=== PATIENT | female | born 1960 | race Caucasian/White ===

== ENCOUNTER 2017-08-04 08:07 | Emergency (ER) | payer BC ==
[2017-08-04] MEDS ORDERED: Nitroglycerin 0.4 MG Tab.SL SL ONE (08:21)
[2017-08-04 09:00] LABS: CHLORIDE,CL 105 mmol/L (98-107); SODIUM,NA 138 mmol/L (136-145)
[2017-08-04] MEDS ORDERED: Morphine 4 MG/ML Syringe IVPUSH ONE (09:09)
[2017-08-04] MEDS ORDERED: Ondansetron 4 MG/2 ML SDV IVPUSH ONE (09:09)
--- NOTE | 2017-08-04 09:20 | EDM.PDOC ---
ED HPI GENERAL MEDICAL PROBLEM - General Chief Complaint: Chest Pain Stated Complaint: shoulder, chest pain Time Seen by Provider: 08/04/17 08:20 Source of Information: Reports: Patient, Old Records History Limitations: Reports: Language Barrier - History of Present Illness INITIAL COMMENTS - FREE TEXT/NARRATIVE: Patient brought over from [facility] [place] after she presented there for right shoulder and chest pain. Denies having similar symptoms in past. Says that she woke this morning with this pain and that it was not present last night. Pain is worse with breathing. Pain is worse when moving arms/shoulders. She denies any significant past medical history other than high cholesterol, anxiety, and migraines/headaches. Patient is from [facility] and was difficult to understand when getting chief complaint/history/family history. Does not report a significant cardiac history. Never smoker. No recent injuries/illnesses. No medication changes. Denies accompanying symptoms such as fever/cough/SOB/GI changes/sweating. Pain started in right shoulder, then began to radiate across anterior chest. No reported changes with eating/drinking. Patient has not taken any medication for the pain. Eventually stated that she has had previous problems with right shoulder pain. Told nurse she has "large" who takes up most of bed and she needs to sleep on her side, often the right shoulder. Also says she has nightly numbness/ tingling in hands that is much better during daytime when she is up and about. Chest Pain Score (Numeric/FACES): 10 - Related Data Allergies Allergy/AdvReac Type Severity Reaction Status Date / Time No Known Allergies Allergy Verified 08/04/17 08:29 Home Meds: Home Meds Ibuprofen [Advil] 1 - 2 tab PO Q6H PRN 06/11/16 [History] Multivits,Ca,Minerals/Iron/FA [Women's Daily Formula Caplet] 1 each PO DAILY [History] Fenofibrate,Micronized [Fenofibrate] 134 mg PO DAILY 08/04/17 [History] Past Medical History HEENT History: Reports: Impaired Vision Cardiovascular History: Reports: High Cholesterol CERTIFIED PARALEGAL History: Reports: Other (See Below) Other OB/BYN History: POSTMENOPAUSAL Neurological History: Reports: Migraines, Other (See Below) Other Neuro History: MUSCLE TENSION HEADACHES. Psychiatric History: Reports: Anxiety - Infectious Disease History Infectious Disease History: Reports: Chicken Pox, Measles, Mumps, Shingles Social & Family History - Family History Family Medical History: Unobtainable (language barrier, no report of significant cardiac history) - Tobacco Use Smoking Status *Q: Never Smoker - Caffeine Use Caffeine Use: Reports: None - Recreational Drug Use Recreational Drug Use: No ED ROS GENERAL - Review of Systems Review Of Systems: See Below Constitutional: Reports: No Symptoms. Denies: Fever, Chills HEENT: Reports: Glasses. Denies: Throat Pain, Throat Swelling, Vertigo, Vision Change Respiratory: Reports: Pleuritic Chest Pain. Denies: Shortness of Breath, Wheezing, Cough, Sputum, Hemoptysis Cardiovascular: Reports: Chest Pain. Denies: Dyspnea on Exertion, Edema, Lightheadedness, Orthopnea, Palpitations, Syncope GI/Abdominal: Reports: No Symptoms : Reports: No Symptoms Musculoskeletal: Reports: Shoulder Pain. Denies: Neck Pain, Arm Pain, Back Pain , Hand Pain, Leg Pain, Foot Pain, Joint Pain, Muscle Pain, Muscle Stiffness Skin: Reports: No Symptoms Neurological: Reports: Paresthesia (Has chronic issues at night, no acute changes/worsening. ) Psychiatric: Denies: Confusion, Depression, Hallucinations, Homicidal Ideation, Mood Lability, Suicidal Ideation ED EXAM, GENERAL - Physical Exam Exam: See Below Exam Limited By: Other (patient very anxious, moaning) General Appearance: Alert, WD/WN, Anxious, Moderate Distress Eye Exam: Bilateral Eye: EOMI, PERRL Ears: Normal External Exam Nose: Normal Inspection Throat/Mouth: Normal Inspection, Normal Lips, Normal Voice, No Airway Compromise Neck: Normal Inspection, Supple, Non-Tender, Full Range of Motion. No: Lymphadenopathy (L), Lymphadenopathy (R) Respiratory/Chest: No Respiratory Distress, Lungs Clear, Normal Breath Sounds, No Accessory Muscle Use, Other (anterior chest tender with palpation, more so in right pectoral area. Reproduces complaint. ) Cardiovascular: Normal Peripheral Pulses, Regular Rate, Rhythm, No Edema, No JVD , No Murmur Peripheral Pulses: 2+: Radial (L), Radial (R), Dorsalis Pedis (L), Dorsalis Pedis (R) GI/Abdominal: Normal Bowel Sounds, Soft, Non-Tender, No Distention (Female) Exam: Deferred Rectal (Female) Exam: Deferred Back Exam: Other (Tenderness in area of left upper trapezius. ). No: CVA Tenderness (L), CVA Tenderness (R), Vertebral Tenderness Neurological: Alert, Oriented, Normal Cognition, Normal Reflexes, No Motor/ Sensory Deficits Psychiatric: Anxious Skin Exam: Warm, Dry, Intact, Normal Color EKG INTERPRETATION EKG Date: 08/04/17 Time: 08:17 Rhythm: NSR Rate (Beats/Min): 78 [place]: Normal P-Wave: Present QRS: Normal ST-T: Normal QT: Normal Comparison: NA - No Prior EKG Course - Vital Signs Last Recorded V/S: Last Vital Signs Temp Pulse 79 08/04/17 10:19 Resp 20 08/04/17 10:19 BP 115/65 08/04/17 10:19 Pulse Ox 94 L 08/04/17 10:19 - Orders/Labs/Meds Orders: Active Orders 24 hr Category Date Time Status EKG Documentation Completion [RC] ASDIRECTED Care 08/04/17 08:21 Ordered Chest 2V [CR] Stat Exams 08/04/17 08:43 Ordered Chest w Cont [CT] Stat Exams 08/04/17 09:10 Ordered UA W/MICROSCOPIC [URIN] Stat Lab 08/04/17 08:20 Uncollected Ketorolac [Toradol] Med 08/04/17 10:52 Once 30 mg IVPUSH ONETIME ONE Sodium Chloride 0.9% [Saline Flush] Med 08/04/17 08:20 Ordered 10 ml FLUSH ASDIRECTED PRN methylPREDNISolone Sod Succ [Solu-MEDROL] Med 08/04/17 10:52 Once 125 mg IVPUSH ONETIME ONE Saline Lock Insert [OM.PC] Stat Oth 08/04/17 08:20 Ordered Medication Orders Sodium Chloride (Saline Flush) 10 ml FLUSH ASDIRECTED PRN PRN Reason: Keep Vein Open Last Admin: 08/04/17 09:21 Dose: 10 ml Labs: Laboratory Tests 08/04/17 08/04/17 08/04/17 Range/Units 08:25 08:25 08:25 WBC 13.7 H (4.0-10.2) K/uL RBC 4.62 (3.77-5.09) M/uL Hgb 13.9 (11.7-15.5) g/dL Hct 41.8 (34.0-46.0) % MCV 90.5 (84.0-98.0) fL MCH 30.1 (28.2-33.3) pg MCHC 33.3 (31.7-36.0) g/dL RDW 13.0 (11.2-14.1) % Plt Count 287 (150-350) K/uL Neut % (Auto) 80.5 H (45.0-80.0) % Lymph % (Auto) 12.7 (10.0-50.0) % [place] % (Auto) 4.8 (2.0-14.0) % Eos % (Auto) 1.8 (0.0-5.0) % Baso % (Auto) 0.2 (0.0-2.0) % Neut # (Auto) 11.00 H (1.40-7.00) K/uL Lymph # (Auto) 1.73 (0.50-3.50) K/uL [place] # (Auto) 0.65 (0.00-1.00) K/uL Eos # (Auto) 0.24 (0.00-0.50) K/uL Baso # (Auto) 0.03 (0.00-0.20) K/uL PT 10.4 (9.8-11.7) SEC INR 1.0 D-Dimer, Quantitative (0-400) ng/mL Sodium 138 (136-145) mmol/L Potassium 3.8 (3.5-5.1) mmol/L Chloride 105 (98-107) mmol/L Carbon Dioxide 21.7 (21.0-32.0) mmol/L BUN 21 H (7-18) mg/dL Creatinine 0.57 (0.51-1.17) mg/dL Est Cr Clr Drug Dosing 76.33 mL/min Estimated GFR (MDRD) > 60 mL/min Glucose 123 H (74-106) mg/dL Calcium 9.7 (8.5-10.1) mg/dL Total Bilirubin 0.5 (0.2-1.0) mg/dL AST 30 (15-37) U/L ALT 35 (12-78) U/L Alkaline Phosphatase 50 (46-116) IU/L Creatine Kinase 149 (26-308) U/L Creatine Kinase Index 0.9 (0.0-2.5) % CK-MB (CK-2) 1.40 (0.00-3.60) ng/mL Troponin I 0.000 (0.000-0.056) ng/mL Total Protein 7.8 (6.4-8.2) g/dL Albumin 4.1 (3.4-5.0) g/dL 08/04/17 Range/Units 08:25 WBC (4.0-10.2) K/uL RBC (3.77-5.09) M/uL Hgb (11.7-15.5) g/dL Hct (34.0-46.0) % MCV (84.0-98.0) fL MCH (28.2-33.3) pg MCHC (31.7-36.0) g/dL RDW (11.2-14.1) % Plt Count (150-350) K/uL Neut % (Auto) (45.0-80.0) % Lymph % (Auto) (10.0-50.0) % [place] % (Auto) (2.0-14.0) % Eos % (Auto) (0.0-5.0) % Baso % (Auto) (0.0-2.0) % Neut # (Auto) (1.40-7.00) K/uL Lymph # (Auto) (0.50-3.50) K/uL [place] # (Auto) (0.00-1.00) K/uL Eos # (Auto) (0.00-0.50) K/uL Baso # (Auto) (0.00-0.20) K/uL PT (9.8-11.7) SEC INR D-Dimer, Quantitative < 100 (0-400) ng/mL Sodium (136-145) mmol/L Potassium (3.5-5.1) mmol/L Chloride (98-107) mmol/L Carbon Dioxide (21.0-32.0) mmol/L BUN (7-18) mg/dL Creatinine (0.51-1.17) mg/dL Est Cr Clr Drug Dosing mL/min Estimated GFR (MDRD) mL/min Glucose (74-106) mg/dL Calcium (8.5-10.1) mg/dL Total Bilirubin (0.2-1.0) mg/dL AST (15-37) U/L ALT (12-78) U/L Alkaline Phosphatase (46-116) IU/L Creatine Kinase (26-308) U/L Creatine Kinase Index (0.0-2.5) % CK-MB (CK-2) (0.00-3.60) ng/mL Troponin I (0.000-0.056) ng/mL Total Protein (6.4-8.2) g/dL Albumin (3.4-5.0) g/dL Meds: Medications Generic Name Dose Route Start Last Admin Trade Name Freq PRN Reason Stop Dose Admin Sodium Chloride 10 ml 08/04/17 08:20 08/04/17 09:21 Saline Flush FLUSH 10 ml ASDIRECTED PRN Administration Keep Vein Open Discontinued Medications Generic Name Dose Route Start Last Admin Trade Name Freq PRN Reason Stop Dose Admin Iopamidol 100 ml 08/04/17 09:45 08/04/17 10:18 Isovue-300 (61%) IVPUSH 08/04/17 09:46 100 ml ONETIME ONE Administration Morphine Sulfate 4 mg 08/04/17 09:09 08/04/17 09:15 Morphine IVPUSH 08/04/17 09:10 4 mg ONETIME ONE Administration Nitroglycerin 0.4 mg 08/04/17 08:21 08/04/17 08:32 Nitrostat SL 08/04/17 08:22 0.4 mg ONETIME ONE Administration Ondansetron HCl 4 mg 08/04/17 09:09 08/04/17 09:15 Zofran IVPUSH 08/04/17 09:10 4 mg ONETIME ONE Administration - Radiology Interpretation Free Text/Narrative:: Chest xray showed very poor inspiration, difficult to assess. Ultimately read as unremarkable per Radiology. CT Results Date: 08/04/17 CT Results Time: 10:48 (Negative for acute processes) - Re-Assessments/Exams Free Text/Narrative Re-Assessment/Exam: 08/04/17 10:41 Labs overall unremarkable except for WBC at 13,000, including Troponin and DDimer. Patient reported some mild improvement with pain with single NTG SL. EKG showed no acute changes. Patient continued to moan and appeared very anxious, still complaining of pain. Very poor inspiration for chest xray. Mediastinum appeared larger when compared to older film, however large difference in level of inspiration between two studies. Given this, and patient's behavior/continued complaints of severe pain , CT study of chest performed to rule out other possible processes, such as aneurism. MS given prior to study. Patient appeared much more comfortable after study performed. Free Text/Narrative Re-Assessment/Exam: 08/04/17 10:54 CT read as negative for acute changes. At this time, suspect that patient complaint is most likely related to musculo- skeletal etiology. Recommended that she look into sleeping situation and bed size/mattress as well as follow up with [facility] [place]. Appointment was made for tomorrow morning at 11:30. She may benefit from PT referral or require additional studies , such as MRI. Patient agreeable with plan, and stated that pain was still present, but much improved. Toradol and Solumedrol given to help with additional pain relief and improvement of inflammation. Departure - Departure Time of Disposition: 11:15 Disposition: Home, Self-Care 01 Condition: Good Clinical Impression: Anterior chest wall pain, Anxiety Right shoulder pain Qualifiers: Chronicity: unspecified Qualified Code(s): M25.511 - Pain in right shoulder - Discharge Information Instructions: Nonspecific Chest Pain, [id number], Shoulder Pain, Ketorolac injection, Methylprednisolone Solution for Injection Forms: ED Department Discharge Additional Instructions: Follow up tomorrow at 11:30 with Megan at [facility] [place]. Follow up in ER as needed if you have sudden worsening problems. You may need additional studies performed, or referral to PT. Consider getting larger bed and better mattress to help with nightly discomfort. OK to take Tylenol for pain. Do not take Ibuprofen or Naprosyn for 6 hours after you leave ER. - My Orders Last 24 Hours: My Active Orders 08/04/17 08:20 UA W/MICROSCOPIC [URIN] Stat Sodium Chloride 0.9% [Saline Flush] 10 ml FLUSH ASDIRECTED PRN Saline Lock Insert [OM.PC] Stat 08/04/17 08:21 EKG Documentation Completion [RC] ASDIRECTED 08/04/17 08:43 Chest 2V [CR] Stat 08/04/17 09:10 Chest w Cont [CT] Stat 08/04/17 10:52 Ketorolac [Toradol] 30 mg IVPUSH ONETIME ONE methylPREDNISolone Sod Succ [Solu-MEDROL] 125 mg IVPUSH ONETIME ONE - Assessment/Plan Last 24 Hours: My Active Orders 08/04/17 08:20 UA W/MICROSCOPIC [URIN] Stat Sodium Chloride 0.9% [Saline Flush] 10 ml FLUSH ASDIRECTED PRN Saline Lock Insert [OM.PC] Stat 08/04/17 08:21 EKG Documentation Completion [RC] ASDIRECTED 08/04/17 08:43 Chest 2V [CR] Stat 08/04/17 09:10 Chest w Cont [CT] Stat 08/04/17 10:52 Ketorolac [Toradol] 30 mg IVPUSH ONETIME ONE methylPREDNISolone Sod Succ [Solu-MEDROL] 125 mg IVPUSH ONETIME ONE
[2017-08-04] MEDS: Sodium Chloride 0.9% 10 ML Syringe FLUSH PRN ×2 (09:21→10:57)
[2017-08-04] MEDS ORDERED: Iopamidol 612 MG/ML 100 ML Bottle IVPUSH ONE (09:45)
[2017-08-04 10:20] VITALS: BP 115/65
[2017-08-04] MEDS ORDERED: methylPREDNISolone Sodium Succinate 125 MG/2 ML SDV IVPUSH ONE (10:52)
[2017-08-04] MEDS ORDERED: Ketorolac 30 MG/ML SDV IVPUSH ONE (10:52)
== END 2017-08-04 11:18 | disposition home or self-care (01) ==
LOC: LL.ED 08:07
DX: R07.89 Other chest pain (principal); F41.9 Anxiety disorder, unspecified; M25.511 Pain in right shoulder; E78.00 Pure hypercholesterolemia, unspecified; Z79.899 Other long term (current) drug therapy
CPT/HCPCS: 36415; 71020; 71260; 80053; 82550; 82553; 84484; 85025; 85379; 85610; 93005; 96374; 96375; 99285; A9270; J1885; J2270; J2405; J2930; J7050; Q9967

== ENCOUNTER 2019-12-07 16:55 | Emergency (ER) | payer BC, OTHER ==
[2019-12-07 17:02] VITALS: PULSE 63
--- NOTE | 2019-12-07 17:18 | EDM.PDOC ---
ED HPI GENERAL MEDICAL PROBLEM - General Chief Complaint: Eye Problems Stated Complaint: EYE SWELLING Time Seen by Provider: 12/07/19 17:05 Source of Information: Reports: Patient, Old Records ([facility] chart/EMR) History Limitations: Reports: Language Barrier - History of Present Illness INITIAL COMMENTS - FREE TEXT/NARRATIVE: The patient drove herself to the emergency room for evaluation of moderate facial rash and facial swelling, after starting a new Firming Cream from [employer] , which she started yesterday morning. Symptoms started at about 10 PM yesterday evening. She is also using another facial pain, which she has tolerated well in the past with no other change in allergen exposure. She does complain of a burning sensation in her face with some pruritus, however no history of dysphagia or other rashes on her body. The patient also denies any recent fever, cough, wheezing, dyspnea, etc.. No recent history of abdominal pain, heartburn, nausea, diarrhea, melena, gross hematochezia, or any food intolerance, including fatty foods, etc.. She is a somewhat poor historian secondary to her poor [place] and anxiety. Onset: Gradual Onset Date: 12/06/19 Onset Time: 22:00 Duration: Getting Worse Location: Reports: Face Quality: Reports: Burning, Same as Previous Episode Severity: Moderate Improves with: Reports: None Worsens with: Reports: None Context: Reports: Other (As above). Denies: Sick Contact, Trauma Associated Symptoms: Reports: Rash. 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: Other (see below) (None) - Related Data Allergies Allergy/AdvReac Type Severity Reaction Status Date / Time NIGHT TIME FIRMING CREAM Allergy Swelling Uncoded 12/07/19 16:57 Home Meds: Home Meds Ibuprofen [Advil] 1 - 2 tab PO Q6H PRN 06/11/16 [History] Multivit,Calc,Mins/Iron/Folic [Women's Daily Formula Caplet] 1 each PO DAILY [History] Famotidine [Pepcid] 20 mg PO BID #20 tab 12/07/19 [Rx] Dell-3 Fatty Acids [Dell-3] 100 mg PO DAILY 12/07/19 [History] diphenhydrAMINE HCl [Benadryl] 50 mg PO Q4HR PRN #30 capsule 12/07/19 [Rx] predniSONE [Prednisone] 20 mg PO BIDMEALS #20 tablet 12/07/19 [Rx] Past Medical History HEENT History: Reports: Impaired Vision, Otitis Media, Other (See Below). Denies: Allergic Rhinitis Other HEENT History: Patient wears reading glasses. Permanent right-sided TM. Left-sided tinnitus. Cardiovascular History: Reports: High Cholesterol, Other (See Below). Denies: Hypertension Other Cardiovascular History: Dyslipidemia with secondary fatty liver. Gastrointestinal History: Reports: Fatty Liver, GERD, Hiatal Hernia, Other (See Below) Other Gastrointestinal History: GERD with reflux esophagitis and benign gastric polyp removed by EGD on 06/12/16. LUMP MAKER History: Reports: Other (See Below) LMP (Approximate): Other (See Below) Other LUMP MAKER History: POSTMENOPAUSAL Musculoskeletal History: Reports: Arthritis, Back Pain, Chronic, Neck Pain, Chronic, Osteoarthritis, Osteoporosis Neurological History: Reports: Headaches, Chronic, Migraines, Other (See Below) Other Neuro History: MUSCLE TENSION HEADACHES. Psychiatric History: Reports: Anxiety, Depression Endocrine/Metabolic History: Reports: Obesity/BMI 30+, Osteopenia, Osteoporosis - Infectious Disease History Infectious Disease History: Reports: Chicken Pox, Measles, Mumps, Shingles, Other (See Below). 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 - Past Surgical History GI Surgical History: Reports: Colonoscopy, EGD, Other (See Below) Other GI Surgeries/Procedures: EGD and colonoscopy on 06/12/16 and 01/15/12. - Past Imaging History Past Imaging History: Reports: CAT Scan (Negative CTA of the chest on 08/04/17. CT of the brain on 05/24/13), DEXA Scan (01/28/19), Mammogram (Last on 08/13/18), MRI (MRI of the brain and [place] of [place] on 06/07/13.), Ultrasound ( Gallbladder ultrasound on 01/22/12.) Social & Family History - Family History Oncologic: Reports: Other (See Below) Other Oncologic Family History: Father with unknown type of GI cancer. 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 ED EXAM GENERAL W FULL EYE - Physical Exam Exam: See Below Exam Limited By: No Limitations General Appearance: Alert, WD/WN, No Apparent Distress, Anxious (Moderate) Eye Exam: Bilateral Eye: EOMI, Normal Inspection (No nystagmus), PERRL, Other ( No eye involvement from her facial cream) Eyelids: Bilateral: Edema Conjunctiva & Sclera: Bilateral: Normal Appearance Cornea Exam: Bilateral: Normal Appearance Extraocular Movements: Bilateral: Intact Pupils: Normal Accommodation Pupillary Size: Bilateral: 6 mm Pupillary Reaction: Bilateral: Brisk Ears: Normal External Exam, Normal Canal (Moderate cerumen), Hearing Grossly Normal, Other (Permanent inferior anterior right TM perforation by history) Nose: Normal Inspection, Normal Mucosa, No Blood Throat/Mouth: Normal Inspection, Normal Lips, Normal Gums, Normal Oropharynx, Normal Voice, No Airway Compromise, Other (No evidence of uvular swelling). No : Normal Teeth (Complete dentures uppers and lowers), Dysphagia, Inflammation, Perioral Cyanosis Head: Facial Swelling (Diffuse mild to moderate facial erythema, urticaria, and swelling with no significant angioedema) Neck: Normal Inspection, Supple, Non-Tender, Full Range of Motion. No: Lymphadenopathy (L), Lymphadenopathy (R), Thyromegaly Respiratory/Chest: No Respiratory Distress, Lungs Clear, Normal Breath Sounds, No Accessory Muscle Use, Chest Non-Tender. No: Pleural Rub, Retractions Cardiovascular: Normal Peripheral Pulses, Regular Rate, Rhythm, No Edema, No Gallop, No JVD, No Murmur, No Rub. No: Gallop/S3, Gallop/S4, Friction Rub GI/Abdominal: Normal Bowel Sounds, Soft, Non-Tender, No Organomegaly, No Distention, No Abnormal Bruit, No Mass, Other (Obese). No: Guarding (Female) Exam: Deferred Rectal (Female) Exam: Deferred Back Exam: Normal Inspection, Full Range of Motion. No: CVA Tenderness (L), CVA Tenderness (R), Muscle Spasm Extremities: Normal Inspection, Normal Range of Motion, Non-Tender, No Pedal Edema, Normal Capillary Refill. No: Michael's Sign Neurological: Alert, Oriented, CN II-XII Intact, Normal Cognition, Normal Gait, No Motor/Sensory Deficits Psychiatric: Anxious (Moderate), Depressed Mood (Mild) Skin Exam: Rash (Facial rash as above). No: Diaphoretic, Increased Warmth, Wound/Incision Lymphatic: No Adenopathy Course - Vital Signs Last Recorded V/S: Last Vital Signs Temp 36.8 C 12/07/19 17:01 Pulse 63 12/07/19 17:01 Resp 16 12/07/19 17:01 BP 150/70 H 12/07/19 17:37 Pulse Ox 100 12/07/19 17:01 Vital Signs - 24 hr 12/07/19 12/07/19 17:01 17:37 Temperature [ 36.8 C Temporal] Pulse, 63 Peripheral [ Pulse Oximetry] Respiratory 16 Rate Blood Pressure 180/87 H 150/70 H [Left Upper Arm ] O2 Sat by Pulse 100 Oximetry - Orders/Labs/Meds Orders: Active Orders 24 hr Category Date Time Status Obtain Past Medical Record [OM.PC] Routine Oth 12/07/19 17:18 Active Labs: None Meds: Medications Discontinued Medications Generic Name Dose Route Start Last Admin Trade Name Skye PRN Reason Stop Dose Admin Diphenhydramine HCl 50 mg 12/07/19 17:21 12/07/19 17:28 Benadryl IM 12/07/19 17:22 50 mg ONETIME ONE Administration Famotidine 40 mg 12/07/19 17:21 12/07/19 17:28 Pepcid PO 12/07/19 17:22 40 mg ONETIME ONE Administration Methylprednisolone Acetate 80 mg 12/07/19 17:19 12/07/19 17:28 Depo-Medrol IM 12/07/19 17:20 80 mg ONETIME ONE Administration - Radiology Interpretation Free Text/Narrative:: None Departure - Departure Time of Disposition: 17:45 Disposition: Home, Self-Care 01 Condition: Good Clinical Impression: Allergic dermatitis, Elevated blood pressure reading, Mixed anxiety depressive disorder, Dyslipidemia, Peptic reflux disease Osteoarthritis Qualifiers: Osteoarthritis location: multiple joints Osteoarthritis type: primary Qualified Code(s): M15.0 - Primary generalized (osteo)arthritis - Discharge Information *PRESCRIPTION DRUG MONITORING PROGRAM REVIEWED*: Not Applicable *COPY OF PRESCRIPTION DRUG MONITORING REPORT IN PATIENT REDD: Not Applicable Prescriptions: diphenhydrAMINE HCl [Benadryl] 50 mg PO Q4HR PRN #30 capsule PRN Reason: Rash Famotidine [Pepcid] 20 mg PO BID #20 tab predniSONE [Prednisone] 20 mg PO BIDMEALS #20 tablet Instructions: Contact Dermatitis Referrals: Марина Jimenez PA [Primary Care Provider] - Forms: ED Department Discharge Additional Instructions: 1. Followup with your regular provider in 5-7 days as directed. Bring these discharge instructions with you to that visit. 2. Continue need to observe your blood pressures closely through your regular provider 3. Sedation precautions with Benadryl, which was also given to you in the emergency room with neck stenosis of Benadryl as needed in 4 hours 4. Stop all facial cream preparations ISAURO secondary to your allergic reaction 5. Immediately after this visit verify that your cellular telephone's voicemail has been activated and is empty. Also verify that your home telephone 's answering machine is operating properly and has space to receive messages. Note that it is sometimes necessary for us to be able to contact you at a later date to discuss your medical care. 6. Please remember that we are ALWAYS here for you and want to answer any questions you may have. Feel free to call the hospital any time and we call you back ISAURO. Sepsis Event Note - Evaluation Sepsis Screening Result: No Definite Risk - Focused Exam Vital Signs: Vital Signs Temp Pulse Resp BP Pulse Ox 12/07/19 17:37 150/70 H 12/07/19 17:01 36.8 C 63 16 180/87 H 100 Date Exam was Performed: 12/07/19 Time Exam was Performed: 17:59 - Problem List & Annotations (1) Allergic dermatitis SNOMED Code(s): 538647455 Code(s): L23.9 - ALLERGIC CONTACT DERMATITIS, UNSPECIFIED CAUSE Status: Acute Priority: High Current Visit: Yes Onset Date: 12/06/19 Annotation/ Comment:: No evidence of angioedema or indication for IM epinephrine therapy. She will be declared allergic to this facial cream and was advised not using any facial preparations in the future. Follow-up by her regular provider. Sedation precautions given. Note Pepcid was used primarily for H2 jessica treatment. (2) Dyslipidemia SNOMED Code(s): 944579761 Code(s): E78.5 - HYPERLIPIDEMIA, UNSPECIFIED Status: Chronic Priority: Medium Current Visit: Yes Annotation/Comment:: Not currently under therapy. Note history of fatty liver. Weight loss in moderation advisable. Close follow- up by regular provider. (3) Elevated blood pressure reading SNOMED Code(s): 69347159 Code(s): R03.0 - ELEVATED BLOOD-PRESSURE READING, W/O DIAGNOSIS OF HTN Status: Acute Priority: High Current Visit: Yes Onset Date: 12/07/19 Annotation/Comment:: Moderately elevated blood pressure at time of arrival secondary to her anxiety. No previous history of hypertension with improved blood pressure prior to discharge without treatment. Continue to observe closely by her regular provider. (4) Mixed anxiety depressive disorder SNOMED Code(s): 130232992 Code(s): F41.8 - OTHER SPECIFIED ANXIETY DISORDERS Status: Chronic Priority: Medium Current Visit: Yes Annotation/Comment:: Moderate control based on today's exam. Continue to observe closely by her regular provider with consideration of medical therapy. (5) Osteoarthritis SNOMED Code(s): 699171563 Code(s): M19.90 - UNSPECIFIED OSTEOARTHRITIS, UNSPECIFIED SITE Status: Chronic Priority: Medium Current Visit: Yes Annotation/Comment:: Stable by history Qualifiers: Osteoarthritis location: multiple joints Osteoarthritis type: primary Qualified Code(s): M15.0 - Primary generalized (osteo)arthritis (6) Peptic reflux disease SNOMED Code(s): 143442866 Code(s): K21.9 - GASTRO-ESOPHAGEAL REFLUX DISEASE WITHOUT ESOPHAGITIS Status: Chronic Priority: Medium Current Visit: Yes Annotation/Comment:: Stable by history. - Problem List Review Problem List Initiated/Reviewed/Updated: Yes - My Orders Last 24 Hours: My Active Orders 12/07/19 17:18 Obtain Past Medical Record [OM.PC] Routine - Assessment/Plan Last 24 Hours: My Active Orders 12/07/19 17:18 Obtain Past Medical Record [OM.PC] Routine Assessment:: As above Plan: As above. Extensive precautions were given to the patient, who is in agreement with the treatment plan. See Patient Instructions for further treatment and plan.
[2019-12-07] MEDS ORDERED: methylPREDNISolone Acetate 80 MG/ML SDV IM ONE (17:19)
[2019-12-07] MEDS ORDERED: diphenhydrAMINE 50 MG/ML SDV IM ONE (17:21)
[2019-12-07] MEDS ORDERED: Famotidine 20 MG Tab PO ONE (17:21)
[2019-12-07 17:38] VITALS: BP 150/70
== END 2019-12-07 17:45 | disposition home or self-care (01) ==
LOC: LL.ED 16:55
DX: T49.8X1A Poisoning by other topical agents, accidental (unintentional), initial encounter (principal); L23.2 Allergic contact dermatitis due to cosmetics; F41.8 Other specified anxiety disorders; M15.0 Primary generalized (osteo)arthritis; E78.5 Hyperlipidemia, unspecified; R03.0 Elevated blood-pressure reading, without diagnosis of hypertension; K21.9 Gastro-esophageal reflux disease without esophagitis; E66.9 Obesity, unspecified; Z91.048 Other nonmedicinal substance allergy status; Z79.899 Other long term (current) drug therapy
CPT/HCPCS: 96372; 99283; A9270-GY; J1040; J1200